=== PATIENT | female | born 1965 | race African-American/Black ===

== ENCOUNTER 2022-02-22 14:30 | Emergency (ER) | payer OTHER ==
[~2022-02-22] VITALS: Ht 172.7 cm; Wt 124.0 kg
[2022-02-22] MEDS ORDERED: SODIUM CHLORIDE 0.9% 1,000 ML IV ONE (15:15)
[2022-02-22] MEDS ORDERED: ASPIRIN 81MG TABLET PO ONE (15:15)
[2022-02-22 16:33] LABS: BASOPHILS % 0.7 % (0.0-2.0); EOSINOPHILS % 0.6 % (0.0-5.0); HEMATOCRIT. 39.5 % (36.0-48.0); HEMOGLOBIN. 13.3 g/dL (12.0-16.0); LYMPHOCYTES % 36.9 % (20.0-50.0); MEAN CORPUSCULAR HEMOGLOBIN 28.3 pg (28.0-32.0); MEAN CORPUSCULAR VOLUME 84.5 fL (81.0-99.0); MEAN PLATELET VOLUME 9.1 fl (7.4-10.4); MONOCYTES % 6.3 % (2.0-8.0); NEUTROPHILS % 55.5 % (40.0-76.0); PLATELET 251 x1000/uL (130-400); RED BLOOD CELL COUNT 4.68 mill/uL (4.2-5.4); RED CELL DISTRIBUTION WIDTH 15.1 % (11.6-14.6)
[2022-02-22 16:42] LABS: CHLORIDE 108 mEq/L (98-107)
[2022-02-22 18:00] VITALS: BP 158/89
== END 2022-02-22 18:32 | disposition home or self-care (01) ==
LOC: ER 14:30
DX: R00.2 Palpitations (principal); R42 Dizziness and giddiness; J45.909 Unspecified asthma, uncomplicated; I10 Essential (primary) hypertension; Z90.49 Acquired absence of other specified parts of digestive tract
CPT/HCPCS: 36415; 80053; 83880; 84484; 85025; 85379; 93005; 96360; 96361; 99284; J7030; Z7610